=== PATIENT | female | born 1985 | race Caucasian/White ===

== ENCOUNTER 2019-10-01 04:09 | Emergency (ER) | payer MEDICAID, OTHER ==
[2019-10-01] MEDS ORDERED: predniSONE 20 MG Tab PO ONE (04:10)
[2019-10-01 04:13] VITALS: PULSE 88
[2019-10-01 04:36] VITALS: BP 130/98
--- NOTE | 2019-10-01 05:00 | EDM.PDOC ---
ED HPI GENERAL MEDICAL PROBLEM - General Chief Complaint: Skin Complaint Stated Complaint: rash Time Seen by Provider: 10/01/19 04:51 Source of Information: Reports: Patient History Limitations: Reports: No Limitations - History of Present Illness INITIAL COMMENTS - FREE TEXT/NARRATIVE: Edwige is a 34 yo female who presents to the ED via private vehicle with concerns of a rash. She states she has noticed the rash for the last 3 days. Admits the rash started by her mastectomy scar to the right breast. Admits since then it has spread to bilateral upper extremities, chest, neck, face and back. She states she has been on chemotherapy since September of 2018. Last chemotherapy was middle march. She admits she does have an appointment on Friday with her oncologist. She states she did contact her oncologist yesterday regarding the rash. She tried Claritin and Triamcinolone cream. She admits to presenting to the ED as she is unable to sleep d/t the itching. Has known history of high blood pressure but currently not being treated for it. Doesn't recall any changes in her daily routine otherwise. States they did change laundry soap at her house recently. Treatments [employer]AC[employer] WE[employer]ER: Reports: Other (see below) Other Treatments [employer]: claritin, loratidine - Related Data Allergies Allergy/AdvReac Type Severity Reaction Status Date / Time Sulfa (Sulfonamide Allergy Cannot Verified 10/01/19 04:14 Antibiotics) Remember Home Meds: Home Meds Acetaminophen 1,000 mg PO Q6H PRN 10/01/19 [History] Ado-Trastuzumab Emtansine [Kadcyla] 100 mg IV Q36D 10/01/19 [History] Butalbital/Acetaminophen [Butalbital-Acetaminophn 50-325] 1 tab PO Q6H 10/01/19 [History] Diphenhyd/Lidocaine/Nystatin [Magic Mouthwash] 15 ml PO Q6H PRN 10/01/19 [ History] Leuprolide [Lupron] 1 injection IM Q36D 10/01/19 [History] Loratadine [Claritin] 1 tab PO BID 10/01/19 [History] Ondansetron [Zofran] 4 mg PO Q4D PRN 10/01/19 [History] Prochlorperazine [Compazine] 10 mg PO QID PRN 10/01/19 [History] Tamoxifen [Nolvadex] 20 mg PO DAILY 10/01/19 [History] Triamcinolone Acetonide [Triamcinolone Acetonide 0.1% Crm] 1 applic TOP TID 09/16 [History] Past Medical History Cardiovascular History: Reports: Hypertension [employer]UC[employer]IC[employer] MEDICAL DIRECTOR History: Reports: Psychiatric History: Reports: Addiction, Anxiety, Depression Oncologic (Cancer) History: Reports: Breast, Other (See Below) Other Oncologic History: lymphnodes - Past Surgical History HEENT Surgical History: Reports: Tonsillectomy, Other (See Below) Other HEENT Surgeries/Procedures: jaw surgery Female Surgical History: Reports: Section Oncologic Surgical History: Reports: Biopsy of Breast, Mastectomy Social & Family History - Tobacco Use Smoking Status *Q: Current Every Day Smoker Years of Tobacco use: 5 Packs/Tins Daily: 0.5 - Caffeine Use Caffeine Use: Reports: Soda - Recreational Drug Use Recreational Drug Use: No ED ROS GENERAL - Review of Systems Review Of Systems: Comprehensive ROS is negative, except as noted in HPI. Constitutional: Denies: Fever, Chills HEENT: Reports: No Symptoms Respiratory: Reports: No Symptoms Cardiovascular: Reports: No Symptoms Endocrine: Reports: No Symptoms Skin: Reports: Urticaria ED EXAM, SKIN/RASH Exam: See Below Exam Limited By: No Limitations General Appearance: Alert, No Apparent Distress Eye Exam: Bilateral Eye: Normal Inspection Ears: Normal External Exam, Hearing Grossly Normal Nose: Normal Inspection, No Blood Throat/Mouth: Normal Inspection, Normal Lips, Normal Teeth, Normal Gums, Normal Oropharynx, Normal Voice, No Airway Compromise Head: Atraumatic, Normocephalic Neck: Normal Inspection, Supple. No: Lymphadenopathy (L), Lymphadenopathy (R) Respiratory/Chest: No Respiratory Distress, Lungs Clear, Normal Breath Sounds, No Accessory Muscle Use Cardiovascular: Regular Rate, Rhythm, No Murmur Skin: Warm, Dry, Rash Location, Skin: Neck, Chest, Upper Extremity, Right, Upper Extremity, Left Characteristics: Maculopapular, Patchy, Urticarial, Erythematous. No: Ria, Vesicular, Petechial, Necrotic Associated features: No: Induration, Scaling, Lymphangitis, Inflammation, Crusting, Weeping Course - Vital Signs Last Recorded V/S: Last Vital Signs Temp 97.6 F 10/01/19 04:11 Pulse 88 04/03/20 04:11 Resp 18 10/01/19 04:11 BP 130/98 H 10/01/19 04:35 Pulse Ox 100 10/01/19 04:11 Departure - Departure Time of Disposition: 05:12 Disposition: Home, Self-Care 01 Clinical Impression: Hives, Elevated blood pressure reading - Discharge Information Instructions: Hives, [id number], Rash, Adult Referrals: Edouard Guardado MD [Primary Care Provider] - Additional Instructions: 1) Recommend taking Benadryl 25mg every 4-6 hours as needed for itching/hives 2) Prednisone 20mg - 2 tablets daily for 5 days 3) Urticaria is generally self-limiting. If trigger identified, such as, Laundry soap, etc... Recommend discontinuation. 4) Encourage discussing blood pressure reading with primary at upcoming appointment 5) If any worsening of symptoms or any concerns at all, recommend reevaluation. Sepsis Event Note - Evaluation Sepsis Screening Result: No Definite Risk - Focused Exam Vital Signs: Vital Signs Temp Pulse Resp BP Pulse Ox 10/01/19 04:35 130/98 H 10/01/19 04:11 97.6 F 88 18 100 Date Exam was Performed: 10/01/19 Time Exam was Performed: 04:53 - Problem List & Annotations (1) Elevated blood pressure reading SNOMED Code(s): 18837490 Code(s): R03.0 - ELEVATED BLOOD-PRESSURE READING, W/O DIAGNOSIS OF HTN Status: Acute Current Visit: Yes (2) Hives SNOMED Code(s): 908759408 Code(s): L50.9 - URTICARIA, UNSPECIFIED Status: Acute Current Visit: Yes - Assessment/Plan Plan: See additional instructions. 25mg of Benadryl given intramuscularly in ED. Patient discharged in satisfactory condition.
[2019-10-01] MEDS ORDERED: diphenhydrAMINE 50 MG/ML SDV IM ONE (05:07)
[2019-10-01] MEDS ORDERED: Take Home: predniSONE 20 MG, 2 Tab Pack PO ONE (05:18)
[2019-10-01] MEDS ORDERED: methylPREDNISolone Sodium Succinate 125 MG/2 ML SDV IM SCH (05:30)
== END 2019-10-01 05:30 | disposition home or self-care (01) ==
LOC: CC.ED 04:09
DX: I10 Essential (primary) hypertension (principal); L50.9 Urticaria, unspecified; F17.210 Nicotine dependence, cigarettes, uncomplicated; Z88.2 Allergy status to sulfonamides; Z79.899 Other long term (current) drug therapy
CPT/HCPCS: 96372; 99282; A9270-GY; J1200; J2930